=== PATIENT | male | born 1975 | race African-American/Black ===

== ENCOUNTER 2019-08-02 18:06 | Emergency (ER) | payer MEDICAID, OTHER ==
[~2019-08-02] VITALS: Ht 170.2 cm; Wt 120.0 kg
[2019-08-02 18:49] VITALS: BP 147/92
[2019-08-02] MEDS: ACETAMINOPHEN WITH CODEINE 300/30MG TABLET PO ONE (19:11)
== END 2019-08-02 20:24 | disposition home or self-care (01) ==
LOC: ER 18:06
DX: S53.402A Unspecified sprain of left elbow, initial encounter (principal); J45.909 Unspecified asthma, uncomplicated; F12.10 Cannabis abuse, uncomplicated; Z91.018 Allergy to other foods; V23.4XXA Motorcycle driver injured in collision with car, pick-up truck or van in traffic accident, initial encounter; Y93.89 Activity, other specified; Y92.488 Other paved roadways as the place of occurrence of the external cause
CPT/HCPCS: 73080; 99283; A4565